=== PATIENT | male | born 1965 | race African-American/Black ===

== ENCOUNTER 2016-10-07 20:24 | Emergency (ER) | payer MEDICARE, OTHER ==
[2016-10-07 21:05] VITALS: BP 120/73; PULSE 98; RESP 18; TEMP 97.6; O2SAT 100
[2016-10-07 21:49] LABS: AUTOMATED NEUTROPHIL # 2.7 TH/MM3 (1.8-7.7); BASOPHIL # 0.1 TH/MM3 (0-0.2); BASOPHIL % 0.8 % (0.0-2.0); EOSINOPHIL # 0.4 TH/MM3 (0-0.4); HEMATOCRIT 42.3 % (39.0-51.0); HEMO FLAGS DIFF FINAL; LYMPH % 38.4 % (9.0-44.0); LYMPHOCYTE # 2.4 TH/MM3 (1.0-4.8); MEAN CORPUSCULAR HEMOGLOBIN 26.4 PG (27.0-34.0); MEAN CORPUSCULAR HGB CONC 32.6 % (32.0-36.0); MONO % 10.5 % (0.0-8.0); NEUT % 43.3 % (16.0-70.0); PLATELET COUNT 173 TH/MM3 (150-450); RED BLOOD COUNT 5.22 MIL/MM3 (4.50-5.90); WHITE BLOOD COUNT 6.2 TH/MM3 (4.0-11.0)
--- NOTE | 2016-10-07 21:50 | PD ---
HPI Chief Complaint: Psychiatric Symptoms Time Seen by Provider: 21:49 Travel History International Travel<30 days: No Contact w/Intl Traveler<30days: No Traveled to known affect area: No History of Present Illness HPI 51-year-old male that presents to the ED for evaluation of psychiatric illness. Patient was Gabriel acted by police secondary to making suicidal statements. She has a history of depression and as well as HIV and hepatitis. He uses IV drugs. He states that his been using recently. Per patient he was in an argument and someone called the police and now he is here. He denies any suicidal or homicidal ideation. He denies any chest pain or shortness of breath. He states compliance with his HIV medications. He denies any other medical issues. No allergies to medication. No other medical issues. No pain. PFSH Past Medical History Diminished Hearing: No Hepatitis: Yes (HEP C) Medical other: Yes (HIV+) Past Surgical History Other Surgery: Yes (L LYMPH NODE REMOVED) Social History Alcohol Use: Yes (FREQUENTLY ) Tobacco Use: Yes Substance Use: Yes (CRACK COCAINE LAST USED 10/06/16) Allergies-Medications (Allergen,Severity, Reaction): Coded Allergies: No Known Allergies (Unverified , 10/07/16) Review of Systems Except as stated in HPI: all other systems reviewed are Neg Physical Exam Narrative GENERAL: SKIN: Warm and dry. HEAD: Atraumatic. Normocephalic. EYES: Pupils equal and round. No scleral icterus. No injection or drainage. ENT: No nasal bleeding or discharge. Mucous membranes pink and moist. Tongue is midline. No uvula deviation. NECK: Trachea midline. No JVD. CARDIOVASCULAR: Regular rate and rhythm. No murmurs, S3, S4. RESPIRATORY: No accessory muscle use. Clear to auscultation. Breath sounds equal bilaterally. GASTROINTESTINAL: Abdomen soft, non-tender, nondistended. Hepatic and splenic margins not palpable. MUSCULOSKELETAL: Extremities without clubbing, cyanosis, or edema. No obvious deformities. Full range of motion of the upper and lower extremities bilaterally. 2+ pulses bilaterally. NEUROLOGICAL: Awake and alert. No obvious cranial nerve deficits. Motor grossly within normal limits. Five out of 5 muscle strength in the arms and legs. Normal speech. PSYCHIATRIC: Appropriate mood and affect; insight and judgment normal. Data Data Last Documented VS Vital Signs Date Time Temp Pulse Resp B/P Pulse Ox O2 Delivery O2 Flow Rate FiO2 10/07/16 21:11 16 10/07/16 21:05 97.6 98 120/73 100 Orders Complete Blood Count With Diff (10/07/16 20:55) Comprehensive Metabolic Panel (10/07/16 20:55) Psych Screen (10/07/16 20:55) Drug Screen, Random Urine (10/07/16 20:55) Alcohol (Ethanol) (10/07/16 20:55) Salicylates (Aspirin) (10/07/16 20:55) Tylenol (Acetaminophen) (10/07/16 20:55) Labs Laboratory Tests Test 10/07/16 10/07/16 21:15 21:51 White Blood Count 6.2 TH/MM3 Red Blood Count 5.22 MIL/MM3 Hemoglobin 13.8 GM/DL Hematocrit 42.3 % Mean Corpuscular Volume 81.0 FL Mean Corpuscular Hemoglobin 26.4 PG Mean Corpuscular Hemoglobin 32.6 % Concent Red Cell Distribution Width 14.0 % Platelet Count 173 TH/MM3 Mean Platelet Volume 8.7 FL Neutrophils (%) (Auto) 43.3 % Lymphocytes (%) (Auto) 38.4 % Monocytes (%) (Auto) 10.5 % Eosinophils (%) (Auto) 7.0 % Basophils (%) (Auto) 0.8 % Neutrophils # (Auto) 2.7 TH/MM3 Lymphocytes # (Auto) 2.4 TH/MM3 Monocytes # (Auto) 0.6 TH/MM3 Eosinophils # (Auto) 0.4 TH/MM3 Basophils # (Auto) 0.1 TH/MM3 CBC Comment DIFF FINAL Differential Comment Sodium Level 137 MEQ/L Potassium Level 4.3 MEQ/L Chloride Level 104 MEQ/L Carbon Dioxide Level 29.4 MEQ/L Anion Gap 4 MEQ/L Blood Urea Nitrogen 28 MG/DL Creatinine 1.55 MG/DL Estimat Glomerular Filtration 58 ML/MIN Rate Random Glucose 80 MG/DL Calcium Level 8.5 MG/DL Total Bilirubin 0.4 MG/DL Aspartate Amino Transf 83 U/L (AST/SGOT) Alanine Aminotransferase 64 U/L (ALT/SGPT) Alkaline Phosphatase 82 U/L Total Protein 8.4 GM/DL Albumin 3.2 GM/DL Salicylates Level LESS THAN 1.7 MG/DL Acetaminophen Level LESS THAN 2.0 MCG/ML Ethyl Alcohol Level 5 MG/DL Urine Opiates Screen NEG Urine Barbiturates Screen NEG Urine Amphetamines Screen POS Urine Benzodiazepines Screen NEG Urine Cocaine Screen NEG Urine Cannabinoids Screen NEG MDM Medical Decision Making Medical Screen Exam Complete: Yes Emergency Medical Condition: Yes Medical Record Reviewed: Yes Interpretation(s) CBC & BMP Diagram 10/07/16 21:15 tox positive for amphetamines LFTS WNL Differential Diagnosis Depression versus suicidal ideation versus anxiety versus adjustment disorder versus mood disorder versus bipolar disorder versus schizophrenia versus paranoid disorder versus psychosis versus substance abuse versus alcohol abuse versus alcohol induced psychosis versus homicidality addition versus cutting versus personality disorder Narrative Course 51-year-old male that presents to the ED for evaluation of psychiatric illness. No sign of acute medical distress. Patient will be medically clear. Okay to be seen by psych. Mental health screening was discussed with the patient. Diagnosis Primary Impression: Depression Qualified Code: F32.1 - Moderate single current episode of major depressive disorder Gilmar Vann Oct 07, 2016 21:50
[2016-10-07 21:51] LABS: ANION GAP 4 MEQ/L (5-15); AST (GOT) 83 U/L (15-37); BICARBONATE 29.4 MEQ/L (21.0-32.0); BLOOD UREA NITROGEN 28 MG/DL (7-18); CHLORIDE 104 MEQ/L (98-107); GLOMERULAR FILTRATION RATE 58 ML/MIN (>89); POTASSIUM 4.3 MEQ/L (3.5-5.1); SODIUM (NA) 137 MEQ/L (136-145)
[2016-10-07 21:52] LABS: ALT (GPT) 64 U/L (12-78)
[2016-10-07 21:53] LABS: ALCOHOL 5 MG/DL (0-5)
[2016-10-07 21:54] LABS: ALKALINE PHOSPHATASE 82 U/L (45-117); TOTAL BILIRUBIN ADULT 0.4 MG/DL (0.2-1.0)
[2016-10-07 22:03] LABS: ACETAMINOPHEN LESS THAN 2.0 MCG/ML (10.0-30.0)
[2016-10-08 06:17] VITALS: BP 136/72; PULSE 73; RESP 18; O2SAT 97
[2016-10-08] MEDS ORDERED: EMTR1TAB4 PO (06:17)
[2016-10-08] MEDS ORDERED: HIV MED PO (06:17)
[2016-10-08 11:31] VITALS: BP 111/78; PULSE 76; RESP 18; O2SAT 99
--- NOTE | 2016-10-08 14:22 | PD ---
History of Present Illness Chief Complaint: Psychiatric Symptoms Time Seen by Provider: 14:00 Travel History International Travel<30 Days: No Contact w/Intl Traveler<30days: No Known affected area: No Legal Status Legal Status: Gabriel Act History of Present Illness: History of Present Illness 51-year-old male with history of substance use disorder who presents to the ED under a BA initiated by law enforcement for evaluation of psychiatric illness. The report alleges that the patient is going thru a breakup and told his friend that he took something but would not say what, as well as telling the friend that " if he sees the police he will end it immediately. The patient alleges that he took one Benadryl because he was having a skin rash and that he fell asleep so his friend became worried when he did not answer the phone. He states " It was all a misunderstanding". EMR is reviewed as part of this evaluation. No previous contact with [facility] psychiatry dept. Current toxicology is positive for amphetamines. This afternoon the patient is alert and oriented. He is dressed in [facility] with fair hygiene. He is engaging, calm and cooperative. His speech is clear and logical. He denies any hallucinations and does not appear to be internally preoccupied. He denies any suicidal or homicidal ideation, intent or plan. denies any previous suicide attempts. Patient does not demonstrate any subjective clinical signs of depression and he does not report any significant depression. He is requesting to be discharged as he is from [place] and is only visiting a friend here. PFSH Past Medical History Diminished Hearing: No Hepatitis: Yes (HEP C) Medical other: Yes (HIV+) Past Surgical History Other Surgery: Yes (L LYMPH NODE REMOVED) Psychiatric History Psychiatric History Hx Psychiatric Treatment: Deneis any History of Inpatient Treatment: Yes Guns or firearms in home: No Social History Single male.Reports he is on disability for medical issues. Hx Alcohol Use: Yes (FREQUENTLY ) Hx Tobacco Use: Yes Hx Substance Use: No Substance Use Type: Alcohol, Amphetamines-Stimulants, Cocaine Other Substances Used: REPORTS USING METH, COCAINE, AND ALCOHOL Hx of Substance Use Treatment: Yes Family Psychiatric History Negative Allergies-Medications (Allergen,Severity, Reaction): Coded Allergies: No Known Allergies (Unverified , 10/07/16) Reported Meds & Prescriptions Reported Meds & Active Scripts Active Reported [Hiv Med] 1 Tab PO DAILY Descovy (Emtricitabine-Tenofovir Alafenamide) 200-25 mg Tab 1 Tab PO DAILY Review of Systems Except as stated in HPI: all other systems reviewed are Neg Exam Alert: Yes [place]: Person (ox4) Mood: Calm Affect: Appropriate Speech: Clear, Logical Eye Contact: Normal Memory Intact: Comment (No impairment) Hallucinations: Other (Negative) Delusions: No Suicidal: Ideation (deneis any) Homicidal: Ideation (deneis any) Insight/Judgement Fair,not impaired MDM Medical Decision Making Medical Record Reviewed: Yes Assessment/Plan 51-year-old male that presents to the ED under a Gabriel acted by police secondary to making suicidal statements. The patient did not make any attempt at harming himself and sates that he told a friend he took something and his friend became concerned when he did not answer the phone. He states he only took one Benadryl. He has remained in behavioral control here and has no suicidality. He does not meet BA criteria and is requesting discharge.I will lift BA and discharge. Recommend abstinence form substances. Orders Complete Blood Count With Diff (10/07/16 20:55) Comprehensive Metabolic Panel (10/07/16 20:55) Psych Screen (10/07/16 20:55) Drug Screen, Random Urine (10/07/16 20:55) Alcohol (Ethanol) (10/07/16 20:55) Salicylates (Aspirin) (10/07/16 20:55) Tylenol (Acetaminophen) (10/07/16 20:55) Diet Regular Basic (10/08/16 Breakfast) Diet Regular Basic (10/08/16 Lunch) Diet Regular Basic (10/08/16 Dinner) Results Vital Signs Date Time Temp Pulse Resp B/P Pulse Ox O2 Delivery O2 Flow Rate FiO2 10/08/16 11:31 76 18 111/78 99 Room Air 10/08/16 06:17 73 18 136/72 97 Room Air 10/07/16 21:11 16 10/07/16 21:05 97.6 98 18 120/73 100 Laboratory Tests Test 10/07/16 10/07/16 21:15 21:51 White Blood Count 6.2 Red Blood Count 5.22 Hemoglobin 13.8 Hematocrit 42.3 Mean Corpuscular Volume 81.0 Mean Corpuscular Hemoglobin 26.4 Mean Corpuscular Hemoglobin 32.6 Concent Red Cell Distribution Width 14.0 Platelet Count 173 Mean Platelet Volume 8.7 Neutrophils (%) (Auto) 43.3 Lymphocytes (%) (Auto) 38.4 Monocytes (%) (Auto) 10.5 Eosinophils (%) (Auto) 7.0 Basophils (%) (Auto) 0.8 Neutrophils # (Auto) 2.7 Lymphocytes # (Auto) 2.4 Monocytes # (Auto) 0.6 Eosinophils # (Auto) 0.4 Basophils # (Auto) 0.1 CBC Comment DIFF FINAL Differential Comment Sodium Level 137 Potassium Level 4.3 Chloride Level 104 Carbon Dioxide Level 29.4 Anion Gap 4 Blood Urea Nitrogen 28 Creatinine 1.55 Estimat Glomerular Filtration 58 Rate Random Glucose 80 Calcium Level 8.5 Total Bilirubin 0.4 Aspartate Amino Transf 83 (AST/SGOT) Alanine Aminotransferase 64 (ALT/SGPT) Alkaline Phosphatase 82 Total Protein 8.4 Albumin 3.2 Salicylates Level LESS THAN 1.7 Acetaminophen Level LESS THAN 2.0 Ethyl Alcohol Level 5 Urine Opiates Screen NEG Urine Barbiturates Screen NEG Urine Amphetamines Screen POS Urine Benzodiazepines Screen NEG Urine Cocaine Screen NEG Urine Cannabinoids Screen NEG Diagnosis Primary Impression: Substance induced mood disorder Additional Impression: Depression Psychiatrically Cleared: Yes Departure Forms: Tests/Procedures Patient Instructions: General Instructions, Polysubstance Abuse (ED) Med/ Other Pt Specific Info: No Change to Meds, No Meds Exist/No RX given Disposition: 01 DISCHARGE HOME Condition: Stable Problem Qualifiers Additional Impression: Depression Qualified Code: F32.1 - Moderate single current episode of major depressive disorder Anahi Sibley Oct 08, 2016 14:22
[2016-10-08 14:23] VITALS: BP 111/78
== END 2016-10-08 14:29 | disposition home or self-care (01) ==
LOC: NEDAMB 20:24 → NEPJ 10-08 14:29
DX: F32.1 Major depressive disorder, single episode, moderate (principal); B19.20 Unspecified viral hepatitis C without hepatic coma
CPT/HCPCS: 80053; 80307; 85025; 99284